=== PATIENT | male | born 1985 | race Caucasian/White ===

== ENCOUNTER 2018-03-19 14:22 | Emergency (ER) | payer OTHER ==
[~2018-03-19] VITALS: Ht 175.3 cm; Wt 65.8 kg
[~2018-03-19 14:22] MED LIST: ACETAMINOPHEN-1 EAC1 PO; AEROCHAMBER MI1 EACH PO; ALPRAZOLAM 0.0.25 M1; AMBIEN; AZITHROMYCIN 2250 MG PO; BACLOFEN; BACTRIM DS TAB1 EACH PO; DOXYCYCLINE 10100 M1 PO; ENDOCET 10-3251 EACH; GABAPENTIN; IBUPROFEN 800800 M1 PO; IBUPROFEN 800800 MG PO; NORCO 5-325 TA1 EACH PO; OXYCODONE HCL 55 MG PO; PERCOCET; PERCOCET 5-3251 EACH PO; PROAIR HFA8.5 GM INH; SLEEPING AID; TRAMADOL 50 MG50 MG PO; ZANAFLEX4 MG PO
[2018-03-19] MEDS ORDERED: NEURONTIN 300300 M1 PO (14:35)
[2018-03-19] MEDS ORDERED: IBUPROFEN 800800 M1 PO (14:36)
[2018-03-19] MEDS ORDERED: LIORESAL 10 MG10 MG PO (14:36)
[2018-03-19] MEDS ORDERED: DOXYCYCLINE 10100 MG PO (15:43)
[2018-03-19] MEDS ORDERED: IBUPROFEN 600600 M1 PO (15:43)
[2018-03-19] MEDS ORDERED: NORCO 5-325 TA1 EACH PO (15:43)
[2018-03-19 15:59] VITALS: BP 138/70
== END 2018-03-19 16:00 | disposition home or self-care (01) ==
LOC: M.ERS 14:22
DX: L03.113 Cellulitis of right upper limb (principal); G89.29 Other chronic pain; M54.9 Dorsalgia, unspecified; F17.210 Nicotine dependence, cigarettes, uncomplicated; Z88.0 Allergy status to penicillin

== ENCOUNTER 2020-09-02 19:18 | Emergency (ER) | payer OTHER ==
[~2020-09-02] VITALS: Ht 175.3 cm; Wt 72.6 kg
[~2020-09-02 19:18] MED LIST changes: +DOXYCYCLINE 10100 MG PO; +IBUPROFEN 600600 M1 PO; +LIORESAL 10 MG10 MG PO; +NEURONTIN 300300 M1 PO
[2020-09-02] MEDS ORDERED: MOBIC7.5 MG PO (19:26)
[2020-09-02] MEDS ORDERED: DOXYCYCLINE 10100 MG PO (19:52)
[2020-09-02] MEDS ORDERED: CENTANY30 GM TOP (19:52)
[2020-09-02 20:10] VITALS: BP 132/78
== END 2020-09-02 20:10 | disposition home or self-care (01) ==
LOC: M.ERS 19:18
DX: L02.511 Cutaneous abscess of right hand (principal); Z88.0 Allergy status to penicillin; G89.29 Other chronic pain